=== PATIENT | male | born 1955 | race Caucasian/White ===

== ENCOUNTER → 2021-04-03 | Day surgery (SDC) | payer OTHER | END | disposition home or self-care (01) | LOC: ADM 04-01 13:45 → AMB-ENDOS 07:00 | PROVIDERS: ATTEND Colon & Rectal Surgery | DX: D12.2 Benign neoplasm of ascending colon (principal); D12.3 Benign neoplasm of transverse colon; D12.4 Benign neoplasm of descending colon; K62.1 Rectal polyp; K64.0 First degree hemorrhoids; Z20.822 Contact with and (suspected) exposure to COVID-19 ==